=== PATIENT | female | born 1990 | race Hispanic/Latino ===

== ENCOUNTER 2016-10-28 07:43 | Emergency (ER) | payer OTHER ==
[~2016-10-28] VITALS: Ht 162.6 cm; Wt 116.8 kg
[~2016-10-28 07:43] MED LIST: BACTRIM,SEPT1 TABLET PO; BENADRYL50 MG PO; CLEOCIN150 MG PO; KEFLEX500 MG PO; MACROBID100 MG PO; PEPCID40 MG PO; PREDNISONE10 MG PO; PRENATAL TABLE1 EAC3 PO; PROMETHAZINE HC25 M1 PO; ZITHROMAX Z-PA250 MG PO
[2016-10-28 07:49] VITALS: BP 130/96
[2016-10-28] MEDS ORDERED: KEFLEX500 MG PO (08:29)
== END 2016-10-28 08:55 | disposition home or self-care (01) ==
LOC: EME 07:43
DX: J02.0 Streptococcal pharyngitis (principal); J03.80 Acute tonsillitis due to other specified organisms; B96.89 Other specified bacterial agents as the cause of diseases classified elsewhere; Z87.891 Personal history of nicotine dependence
CPT/HCPCS: 99281; 99282; J1100

== ENCOUNTER 2017-04-09 21:30 | Emergency (ER) | payer OTHER ==
[~2017-04-09] VITALS: Ht 162.6 cm; Wt 120.3 kg
[2017-04-09 22:09] LABS: HEMATOCRIT 37.6 % (36.0-46.0); HEMOGLOBIN 12.2 G/DL (11.9-15.5); MCH 25.3 PG (29.0-34.0); MCHC 32.4 G/DL (30.0-36.0); PLATELET COUNT 350 K/uL (156-360); RBC DIS.WIDTH-CV 13.5 % (11.8-14.6); RBC DIS.WIDTH-SD 38.4 % (39-53); RED BLOOD COUNT 4.82 M/uL (3.80-5.20); WHITE BLOOD COUNT 12.3 K/uL (4.1-10.2)
[2017-04-09 22:20] LABS: CHLORIDE 105 mEq/L (99-109); POTASSIUM 3.7 mEq/L (3.7-5.4); SODIUM 138 mEq/L (136-147)
[2017-04-09 22:22] LABS: GLUCOSE 106 mg/dL (70-99)
[2017-04-09 22:26] LABS: CREATININE 1.1 mg/dL (0.6-1.3); GFR ESTIMATE (CALCULATED) > 59 mL/min/; UREA NITROGEN (BUN) 11 mg/dL (9-23)
[2017-04-09 22:29] LABS: TROP-I INTERPRETATION NEGATIVE; TROPONIN-I < 0.01 ng/mL (0.0-0.30)
[2017-04-10 00:10] LABS: ALBUMIN 4.3 g/dL (3.2-4.8); D-DIMER ELISA < 150.00 ng/mLDDU (<230)
[2017-04-10 00:13] LABS: TOTAL PROTEIN 7.9 g/dL (6.4-8.3)
[2017-04-10 00:15] LABS: TOTAL BILIRUBIN 0.2 mg/dL (0.0-1.0)
[2017-04-10 00:16] LABS: ALKALINE PHOSPHATASE 72 IU/L (3-129)
[2017-04-10 00:18] LABS: AST (GOT) 16 IU/L (2-34); DIRECT BILIRUBIN 0.1 mg/dL (0.0-0.3)
[2017-04-10 00:19] LABS: ALT (GPT) 15 IU/L (3-49); LIPASE 16 U/L (1.0-51.0)
[2017-04-10] MEDS ORDERED: PEPCID20 MG PO (01:09)
[2017-04-10 01:33] LABS: APPEARANCE CLOUDY ((CLEAR)); BILIRUBIN NEGATIVE; BLOOD MODERATE; COLOR YELLOW ((YELLOW)); GLUCOSE (STRIP) NEGATIVE; KETONES 5; LEUKOCYTES SMALL; NITRITE NEGATIVE; PROTEIN (STRIP) NEGATIVE; SPECIFIC GRAVITY 1.018 (1.000-1.030); UROBILINOGEN 0.2 MG/DL (0.2-1.0)
[2017-04-10 01:38] LABS: BACTERIA 1+ /HPF; EPITHELIAL CELLS 3+ /HPF; MUCUS TRACE /LPF; RED BLOOD CELLS 0-5 /HPF (0-5); UCUL ADDED? NO; WHITE BLOOD CELLS 0-5 /HPF (0-5)
[2017-04-10 02:11] VITALS: BP 124/68
[2017-04-10] MEDS ORDERED: MACROBID100 MG PO (02:11)
== END 2017-04-10 02:15 | disposition home or self-care (01) ==
LOC: EME 21:30
PROVIDERS: Emergency Medicine
DX: K29.00 Acute gastritis without bleeding (principal); N30.01 Acute cystitis with hematuria; Z87.891 Personal history of nicotine dependence; Z88.0 Allergy status to penicillin
CPT/HCPCS: 71046; 76705; 80048; 80076; 81003; 81025; 83690; 84484; 85027; 85379; 93005; 99281; 99284

== ENCOUNTER 2017-06-08 20:10 | Emergency (ER) | payer OTHER ==
[~2017-06-08] VITALS: Ht 162.6 cm; Wt 117.5 kg
[~2017-06-08 20:10] MED LIST changes: +PEPCID20 MG PO
[2017-06-08 20:51] LABS: APPEARANCE SL.HAZY ((CLEAR)); BILIRUBIN NEGATIVE; BLOOD LARGE; COLOR AMBER ((YELLOW)); GLUCOSE (STRIP) NEGATIVE; KETONES NEGATIVE; LEUKOCYTES TRACE; NITRITE NEGATIVE; PROTEIN (STRIP) 100; SPECIFIC GRAVITY 1.025 (1.000-1.030)
[2017-06-08 21:11] LABS: BACTERIA RARE /HPF; EPITHELIAL CELLS 3+ /HPF; MUCUS TRACE /LPF; RED BLOOD CELLS 0-5 /HPF (0-5); UCUL ADDED? YES
[2017-06-08 22:12] VITALS: BP 134/76
== END 2017-06-08 22:13 | disposition home or self-care (01) ==
LOC: EME 20:10
DX: J30.9 Allergic rhinitis, unspecified (principal); R51 Headache; R30.0 Dysuria; Z88.0 Allergy status to penicillin; Z87.891 Personal history of nicotine dependence
CPT/HCPCS: 81003; 87086; 99281; 99284